=== PATIENT | male | born 1960 | race Two or more races ===

== ENCOUNTER 2023-10-31 12:15 | Inpatient (IN) | payer OTHER ==
[~2023-10-31] VITALS: Ht 177.8 cm; Wt 83.0 kg
[~2023-10-31 12:15] MED LIST: LOSARTAN POTASS50 MG PO
[2023-11-06] MEDS ORDERED: CEFTRIAXONE SODIUM 2,000 MG VIAL ONE (06:48)
[2023-11-06] MEDS ORDERED: METRONIDAZOLE/SODIUM CHLORIDE 500 MG/100 ML PIGGYBACK IV ONE (06:48)
[2023-11-06] MEDS ORDERED: BUPIVACAINE HCL/MPF 0.5% 30ML VIAL ONE ×2 (06:59→07:38)
[2023-11-06] MEDS ORDERED: VISTASEAL DUAL APPICATOR 1 EACH APPL TOP ONE (08:24)
[2023-11-06] MEDS ORDERED: THROMBIN,HU/FIBRINOGEN/CALCIUM 10 ML SYRINGE TOP ONE (08:24)
[2023-11-06] MEDS ORDERED: DEXTROSE 50 % IN WATER 0.5 G/ML DISP.SYRIN IV PRN (10:00)
[2023-11-06] MEDS ORDERED: MORPHINE SULFATE 4 MG/ML CARTRIDGE IV PRN (10:00)
[2023-11-06] MEDS ORDERED: ONDANSETRON HCL 2 MG/ML VIAL IV PRN (10:00)
[2023-11-06] MEDS ORDERED: RINGERS SOLUTION,LACTATED 1,000 ML IV SCH (10:00)
[2023-11-06] MEDS ORDERED: OxyCODONE HCL 5 MG TABLET (ROXICODONE) PO PRN (10:00)
[2023-11-06 12:06] LABS: HEMATOCRIT 43.6 % (39.0-48.0); MEAN CELL VOLUME 94.9 fL (80.0-100.00); MEAN CORPUSCULAR HEMOGLOBIN 32.7 pg (27.00-32.0); MEAN CORPUSCULAR HGB CONC 34.4 g/dl (32.0-36.0); PLATELET COUNT 182 K/uL (150-450); RED CELL DISTRIBUTION WIDTH 14.2 % (11.5-14.5)
[2023-11-06 12:33] LABS: ALBUMIN 3.4 gm/dL (3.4-5.0); CALCIUM 9.1 mg/dL (8.5-10.1); CREATININE SERUM 0.77 mg/dL (0.70-1.30); GFR 102.71; MAGNESIUM 1.8 mg/dL (1.8-2.4); PHOSPHOROUS 3.6 mg/dL (2.5-4.9); POTASSIUM 4.21 mEq/L (3.5-5.1)
[2023-11-06] MEDS ORDERED: ACETAMINOPHEN 500 MG GEL..CAP PO SCH (14:00)
[2023-11-06] MEDS ORDERED: ENALAPRILAT DIHYDRATE 1.25 MG/ML VIAL IV PRN (15:30)
[2023-11-06] MEDS ORDERED: POLYETHYLENE GLYCOL 3350 17 GM BLIST.PACK PO SCH (17:00)
[2023-11-06] MEDS ORDERED: GABAPENTIN 300 MG CAPSULE PO SCH (17:00)
[2023-11-06] MEDS ORDERED: FAMOTIDINE/PF 20 MG/2 ML VIAL IV PUSH SCH (21:00)
[2023-11-07 07:48] LABS: HEMATOCRIT 40.1 % (39.0-48.0); HEMOGLOBIN 13.9 g/dL (13-16.00); MEAN CELL VOLUME 94.6 fL (80.0-100.00); MEAN CORPUSCULAR HEMOGLOBIN 32.8 pg (27.00-32.0); MEAN CORPUSCULAR HGB CONC 34.7 g/dl (32.0-36.0); PLATELET COUNT 149 K/uL (150-450); RED BLOOD COUNT 4.24 M/uL (4.00-6.00); RED CELL DISTRIBUTION WIDTH 13.7 % (11.5-14.5)
[2023-11-07 08:35] LABS: CALCIUM 8.9 mg/dL (8.5-10.1); CREATININE SERUM 0.64 mg/dL (0.70-1.30); GFR 127.14; MAGNESIUM 1.8 mg/dL (1.8-2.4); PHOSPHOROUS 3.5 mg/dL (2.5-4.9); POTASSIUM 4.74 mEq/L (3.5-5.1)
[2023-11-07] MEDS ORDERED: LOSARTAN POTASSIUM 50 MG TABLET PO SCH (09:00)
[2023-11-07] MEDS ORDERED: ENOXAPARIN SODIUM 40 MG/0.4 ML SYRINGE SUBCUTANEO SCH (17:00)
[2023-11-08] MEDS ORDERED: ENOXAPARIN SODIUM 40 MG/0.4 ML SYRINGE SUBCUTANEO SCH (09:00)
[2023-11-09] MEDS ORDERED: NEURONTIN300 MG PO (08:55)
[2023-11-09] MEDS ORDERED: INTESTINEX680 M1 PO (08:55)
[2023-11-09] MEDS ORDERED: ACETAMINOPHEN500 M2 PO (08:55)
== END 2023-11-09 10:44 | disposition home or self-care (01) | DRG 331 ==
LOC: O/R 11-06 05:26 → SURH 11-06 05:26
PROVIDERS: ADMIT Surgery; ATTEND Surgery
PROC: 07BC4ZX Excision of Pelvis Lymphatic, Percutaneous Endoscopic Approach, Diagnostic (ICD-10-PCS; 2023-11-06)
PROC: 0DTF4ZZ Resection of Right Large Intestine, Percutaneous Endoscopic Approach (ICD-10-PCS; principal; 2023-11-06 10:00)
DX: D12.2 Benign neoplasm of ascending colon (principal); R59.0 Localized enlarged lymph nodes

== ENCOUNTER 2025-03-29 13:02 | Inpatient (IN) | payer OTHER ==
[~2025-03-29] VITALS: Ht 177.8 cm; Wt 88.5 kg
[~2025-03-29 13:02] MED LIST changes: +ACETAMINOPHEN500 M2 PO; +INTESTINEX680 M1 PO; +NEURONTIN300 MG PO
--- NOTE | 2025-03-29 13:51 | NUR ---
PACIENTE REFIERE SANGRADO ANAL PURULENTO , HEMORROIDES. PTE REFIERE FIEBRE Y ESCALOFRIOS. SE MIDE VITALES Y SE UBICA EN OBSERVACION CAMA 11.
[2025-03-29] MEDS ORDERED: 0.9 % SODIUM CHLORIDE 500 ML IV ONE (15:00)
[2025-03-29] MEDS ORDERED: KETOROLAC TROMETHAMINE 15 MG VIAL IU ONE (15:00)
[2025-03-29] MEDS ORDERED: PIPERACILLIN/TAZOBACTAM SODIUM 3.375 GM VIAL IV ONE ×2 (15:00→15:07)
[2025-03-29] MEDS ORDERED: KETOROLAC TROMETHAMINE 30 MG VIAL ONE (15:07)
--- NOTE | 2025-03-29 15:45 | NUR ---
SE EDUCA ACERCA DE TX ORDENADO, SE CANALIZA Y COLECTAN MUESTRAS DE LABORATORIO MEDIANTE MEDIDAS ASEPTICAS. SE ADMINISTRAN MEDICAMENTOS JUNIOR ORDEN MEDICAMENTOS JUNIOR ORDEN MEDICA.
[2025-03-29 16:06] LABS: BASO % 0.3 % (0.1-1.2); EOS # 0.01 (0.04-0.54); EOS % 0.1 % (0.7-7.0); LYMPH # 0.90 (1.18-3.74); LYMPH % 9.1 % (19.3-53.1); MEAN PLATELET VOLUME 9.40 fl (9.4-12.4); MONO # 0.50 (0.24-0.82); MONO % 5.0 % (4.7-12.5); NEUT # 8.45 (1.56-6.13); NEUT % 85.2 % (34.0-71.1); RED CELL DISTRIBUTION WIDTH 13.2 % (11.6-14.4)
[2025-03-29 16:26] LABS: BUN CREA RATIO 13.0 (7.0-25.0); CREATININE SERUM 0.88 mg/dL (0.70-1.30); GFR 87.75; GLUCOSE FASTING 167.0 mg/dL (65-100); OSMOLALITY SERUM 279.0 MOSM/KG (275-295)
[2025-03-29] MEDS ORDERED: MORPHINE SULFATE 2 MG/ML SYRINGE IV PRN (20:00)
[2025-03-29 21:57] VITALS: BP 126/71; O2SAT 97
[2025-03-29 22:20] LABS: INR 1.15
[2025-03-30] MEDS ORDERED: PIPERACILLIN/TAZOBACTAM SODIUM 3.375 GM in 0.9 % SODIUM CHLORIDE 100 ML IV SCH
[2025-03-30 02:40] VITALS: BP 97/59; O2SAT 96
[2025-03-30] MEDS ORDERED: MORPHINE SULFATE 4 MG/ML VIAL IV PRN (06:45)
[2025-03-30 08:00] VITALS: BP 94/58; O2SAT 95
[2025-03-30 08:03] LABS: BASO % 0.6 % (0.1-1.2); EOS # 0.08 (0.04-0.54); EOS % 1.1 % (0.7-7.0); LYMPH # 1.92 (1.18-3.74); LYMPH % 26.9 % (19.3-53.1); MEAN PLATELET VOLUME 9.60 fl (9.4-12.4); MONO # 0.82 (0.24-0.82); MONO % 11.5 % (4.7-12.5); NEUT # 4.27 (1.56-6.13); NEUT % 59.6 % (34.0-71.1); RED CELL DISTRIBUTION WIDTH 13.5 % (11.6-14.4)
[2025-03-30 08:06] LABS: ERYTHROCYTE SEDIMENTATION RATE 68 mm/hr (0-20)
[2025-03-30 08:12] LABS: URINE APPEARANCE Clear; URINE BILIRRUBIN Negative (NEGATIVE); URINE BLOOD Negative; URINE COLOR Yellow; URINE GLUCOSE Negative (NEGATIVE); URINE KETONE Negative (NEGATIVE); URINE LEUKOCYTE Negative; URINE NITRATE Negative; URINE PROTEIN Trace (NEGATIVE); URINE UROBILINOGEN 0.2 E.U./dl
[2025-03-30 08:17] LABS: URINE BACTERIA 9.1 uL (0.0-1933); URINE EPITHELIAL CELLS 12.1 uL (0.0-38.8); URINE RBC 5.5 uL (0.0-20.8); URINE WBC 6.2 uL (0.0-23.2)
[2025-03-30 08:24] LABS: URINE CAST 0.00 uL (0.0-1.40)
[2025-03-30 08:44] LABS: BUN CREA RATIO 19.0 (7.0-25.0); CREATININE SERUM 0.58 mg/dL (0.70-1.30); GFR 141.96; GLUCOSE FASTING 95.0 mg/dL (65-100); OSMOLALITY SERUM 284.0 MOSM/KG (275-295)
[2025-03-30] MEDS ORDERED: FAMOTIDINE/PF 20 MG in 0.9 % SODIUM CHLORIDE 100 ML IV SCH (09:00)
[2025-03-30] MEDS ORDERED: DIBUCAINE 15 GM OINT..GM. TUBE RECTAL SCH (10:56)
[2025-03-30] MEDS ORDERED: OxyCODONE HCL 5 MG TABLET (ROXICODONE) PO PRN (11:00)
[2025-03-30] MEDS ORDERED: ONDANSETRON HCL 2 MG/ML VIAL IV PRN (11:00)
[2025-03-30] MEDS ORDERED: ACETAMINOPHEN 500 MG GEL..CAP PO SCH (12:00)
[2025-03-30] MEDS ORDERED: HYOSCYAMINE SULFATE 0.125 MG TAB.SUBL SL SCH (13:00)
[2025-03-30 15:00] VITALS: BP 126/69; O2SAT 99
[2025-03-30] MEDS ORDERED: LACTOBACILLUS ACIDOPHILUS 1 CAP CAP PO SCH (17:00)
[2025-03-30] MEDS ORDERED: TAMSULOSIN HCL 0.4 MG CAP PO SCH (17:00)
[2025-03-31 00:51] VITALS: BP 100/54; BP 123/65; O2SAT 96; O2SAT 97
[2025-03-31 06:57] LABS: BUN CREA RATIO 11.0 (7.0-25.0); CREATININE SERUM 0.61 mg/dL (0.70-1.30); GFR 133.94; GLUCOSE FASTING 92.0 mg/dL (65-100); OSMOLALITY SERUM 288.0 MOSM/KG (275-295)
[2025-03-31 07:27] LABS: BASO % 1.0 % (0.1-1.2); EOS # 0.25 (0.04-0.54); EOS % 5.0 % (0.7-7.0); LYMPH # 1.67 (1.18-3.74); LYMPH % 33.3 % (19.3-53.1); MEAN PLATELET VOLUME 10.50 fl (9.4-12.4); MONO # 0.57 (0.24-0.82); MONO % 11.4 % (4.7-12.5); NEUT # 2.46 (1.56-6.13); NEUT % 49.1 % (34.0-71.1); RED CELL DISTRIBUTION WIDTH 13.5 % (11.6-14.4)
[2025-03-31 08:31] VITALS: BP 120/76; O2SAT 98
[2025-03-31] MEDS ORDERED: OXYC1TAB9 PO (11:52)
== END 2025-03-31 14:41 | disposition home or self-care (01) | DRG 395 ==
LOC: ER 13:02 → SURH 21:08
PROVIDERS: Emergency Medicine; Surgery; ADMIT Internal Medicine; ATTEND Internal Medicine
PROC: BW21YZZ Computerized Tomography (CT Scan) of Abdomen and Pelvis using Other Contrast (ICD-10-PCS; 2025-03-29)
PROC: 3E0T3BZ Introduction of Anesthetic Agent into Peripheral Nerves and Plexi, Percutaneous Approach (ICD-10-PCS; 2025-03-30)
PROC: 0D9P3ZZ Drainage of Rectum, Percutaneous Approach (ICD-10-PCS; principal; 2025-03-30 11:15)
DX: K61.0 Anal abscess (principal); K64.5 Perianal venous thrombosis